=== PATIENT | female | born 1935 | race Caucasian/White ===

== ENCOUNTER 2017-05-19 10:30 | Day surgery (SDC) | payer OTHER, MEDICARE ==
[2017-05-12 14:17] VITALS: BMI 30.2
[2017-05-19] MEDS ORDERED: PROPOFOL 20 ML ONE (11:02)
[2017-05-19 15:12] VITALS: TEMP 97.3
[2017-05-19 15:16] VITALS: PULSE 70
[2017-05-19 15:20] VITALS: BP 112/66
--- NOTE | 2017-05-25 19:00 | PATH ---
Surgical Pathology Report Patient Name: AYANA GARCIA [facility]. Rec. #: [id number] /Age/Gender: 1935 (Age: 82) / F Account: [id number] Location: [facility]-ENDOSCOPY Taken: 05/19/2017 Received: 05/19/2017 Reported: 05/25/2017 Physicians: Sylvia Chaparro M.D. Specimen(s) Received A: SMALL BOWEL B: BX ANTRUM C: GASTRIC POLYP D: BX GE JUNCTION E: BX MID-ESOPHAGUS Clinical History Preoperative diagnosis: Dysphagia Postoperative diagnosis: Celiac disease, mild gastritis, gastric polyp Final Diagnosis A. SMALL BOWEL, BIOPSY: SMALL BOWEL MUCOSA WITH NO PATHOLOGIC FINDINGS. Note: Features suggestive of celiac disease are not identified in this biopsy. B. ANTRUM, BIOPSY: MILD CHRONIC GASTRITIS. IMMUNOSTAIN IS NEGATIVE FOR H. PYLORI ORGANISMS. C. GASTRIC POLYP, BIOPSY: GASTRIC FUNDIC GLAND POLYP. IMMUNOSTAIN IS NEGATIVE FOR H. PYLORI ORGANISMS. D. GE JUNCTION, BIOPSY: COLUMNAR (GASTRIC CARDIA-TYPE) MUCOSA SHOWING MILD CHRONIC INFLAMMATION. NEGATIVE FOR INTESTINAL METAPLASIA. E. MID ESOPHAGUS, BIOPSY: ESOPHAGEAL (SQUAMOUS) MUCOSA WITH NO PATHOLOGIC FINDINGS. NO COLUMNAR EPITHELIUM/INTESTINAL METAPLASIA IS IDENTIFIED. Electronically Signed Doreen Ortiz M.D. Gross Description A. Received in formalin, labeled "small bowel" is a tabor, irregular portion of soft tissue measuring 0.2 cm. in greatest dimension. The specimen is submitted in toto in one cassette. B. Received in formalin, labeled "antrum" is a tabor, irregular portion of soft tissue measuring 0.3 cm. in greatest dimension. The specimen is submitted in toto in one cassette. C. Received in formalin, labeled "gastric polyp" is a tabor, irregular portion of soft tissue measuring 0.4 cm. in greatest dimension. The specimen is submitted in toto in one cassette. D. Received in formalin, labeled "GE junction" is a tabor, irregular portion of soft tissue measuring 0.3 cm. in greatest dimension. The specimen is submitted in toto in one cassette. E. Received in formalin, labeled "mid esophagus" is a tabor, irregular portion of soft tissue measuring 0.2 cm. in greatest dimension. The specimen is submitted in toto in one cassette. 05/20/201705/20/2017
== END 2017-05-19 13:00 | disposition home or self-care (01) ==
LOC: FASU-ENDO 10:30
PROVIDERS: ATTEND Internal Medicine Gastroenterology
PROC: 0DB48ZX Excision of Esophagogastric Junction, Via Natural or Artificial Opening Endoscopic, Diagnostic (ICD-10-PCS; 2017-05-19)
PROC: 0DB98ZX Excision of Duodenum, Via Natural or Artificial Opening Endoscopic, Diagnostic (ICD-10-PCS; principal; 2017-05-19 11:57)
PROC: 0DB68ZX Excision of Stomach, Via Natural or Artificial Opening Endoscopic, Diagnostic (ICD-10-PCS; 2017-05-19 11:57)
DX: R13.10 Dysphagia, unspecified (principal); K52.89 Other specified noninfective gastroenteritis and colitis; K29.70 Gastritis, unspecified, without bleeding
CPT/HCPCS: 88305-TC; 88342-TC